=== PATIENT | male | born 1955 | race African-American/Black ===

== ENCOUNTER 2025-08-13 11:50 | Inpatient (IN) | payer OTHER ==
[2025-08-13 12:12] VITALS: BMI 21.7
[2025-08-13 12:39] LABS: RDW 17.7 % (12.2-16.4)
[2025-08-13 12:41] LABS: IMMATURE PLATELET FRACTION # 2.00 x10^3/uL; MCHC 33.0 g/dl (32.3-36.5); MEAN CELL VOLUME 84.6 fl (79.0-92.2)
[2025-08-13 12:50] LABS: INR 1.31 (0.83-1.09); PROTHROMBIN TIME (PATIENT) 14.3 SEC (9.7-13.0)
[2025-08-13 12:53] LABS: ACTIVATED PTT 27.6 SECONDS (25.2-36.5)
[2025-08-13] MEDS ORDERED: ACETAMINOPHEN INJECTION 100 ML ONE (13:14)
[2025-08-13 13:30] LABS: GLUCOSE,RANDOM 142 mg/dL (74-106)
[2025-08-13] MEDS: SODIUM CHLORIDE 0.9% 500 ML INFUS.BAG IV ONE (13:30)
[2025-08-13] MEDS: ACETAMINOPHEN 1000 MG/100 ML BAG IVPB ONE (13:30)
[2025-08-13 13:31] LABS: TOT PROT 6.6 g/dl (6.4-8.2)
[2025-08-13 13:32] LABS: CO2 19 mmol/L (21-32)
[2025-08-13 13:33] LABS: ALK PHOS 56 U/L (40-150)
[2025-08-13 13:36] LABS: CREATININE 1.01 mg/dL (0.55-1.3); SGOT/AST 31 U/L (5-34); SGPT/ALT < 6 U/L (0-55)
[2025-08-13] MEDS ORDERED: dilTIAZem HCL 125 MG/25 ML - 25 ML VIAL ONE (13:52)
[2025-08-13] MEDS: dilTIAZem HCL 50 MG/10 ML - 10 ML VIAL IVPUSH ONE (14:05)
[2025-08-13 17:10] LABS: URINE APPEARANCE CLEAR; URINE BILIRUBIN NEGATIVE (NEGATIVE); URINE COLOR YELLOW; URINE GLUCOSE (UA) NEGATIVE (NEGATIVE); URINE KETONE NEGATIVE (NEGATIVE); URINE LEUK ESTERASE NEGATIVE (NEGATIVE); URINE NITRITE NEGATIVE (NEGATIVE); URINE PROTEIN NEGATIVE (NEGATIVE); URINE UROBILINOGEN 0.2 mg/dL (0.2-1.0)
[2025-08-13] MEDS ORDERED: METOPROLOL TARTRATE 5 MG/5 ML VIAL IVPUSH PRN (19:22)
[2025-08-13] MEDS: GABAPENTIN 300 MG CAPSULE PO SCH (22:00)
[2025-08-13] MEDS: FLUCONAZOLE 100 MG TABLET (UD) PO SCH (22:00)
[2025-08-13] MEDS: valACYclovir HCL 500 MG TABLET (FP) PO SCH (22:05)
[2025-08-14 00:40] VITALS: RESP 18
[2025-08-14] MEDS: FLUTICASONE/SALMETEROL (WIXELA) 100 MCG/50 MCG DISKUS IH SCH (00:42)
[2025-08-14] MEDS: LOSARTAN 50MG/HCTZ 12.5MG 1 TAB PO SCH (09:39)
[2025-08-14] MEDS: TAMSULOSIN HCL 0.4 MG CAP PO SCH (09:39)
[2025-08-14] MEDS: GABAPENTIN 100 MG CAPSULE PO SCH (09:40)
[2025-08-14 11:55] LABS: IMMATURE PLATELET FRACTION # 1.70 x10^3/uL; MCHC 33.9 g/dl (32.3-36.5); MEAN CELL VOLUME 84.4 fl (79.0-92.2); RDW 15.7 % (12.2-16.4)
[2025-08-14 13:03] LABS: GLUCOSE,RANDOM 99 mg/dL (74-106)
[2025-08-14 13:04] LABS: TOT PROT 5.4 g/dl (6.4-8.2)
[2025-08-14 13:05] LABS: CO2 23 mmol/L (21-32)
[2025-08-14 13:07] LABS: ALK PHOS 45 U/L (40-150)
[2025-08-14 13:09] LABS: SGOT/AST 13 U/L (5-34); SGPT/ALT < 6 U/L (0-55)
[2025-08-14 13:10] LABS: CREATININE 1.21 mg/dL (0.55-1.3)
[2025-08-14] MEDS: ACETAMINOPHEN 325 MG TABLET (FP) PO PRN (20:14)
[2025-08-14 23:29] LABS: IMMATURE PLATELET FRACTION # 2.00 x10^3/uL; MCHC 34.8 g/dl (32.3-36.5); MEAN CELL VOLUME 84.2 fl (79.0-92.2); MEAN PLT VOLUME 10.5 fl (9.4-12.4); RDW 15.0 % (12.2-16.4)
[2025-08-15] MEDS: PREGABALIN 50 MG CAPSULE PO ONE (03:50)
[2025-08-15 08:10] LABS: MEAN CELL VOLUME 86.4 fl (79.0-92.2); RDW 15.0 % (12.2-16.4)
[2025-08-15 08:12] LABS: IMMATURE PLATELET FRACTION # 1.60 x10^3/uL; MCHC 34.5 g/dl (32.3-36.5); MEAN PLT VOLUME 10.9 fl (9.4-12.4)
[2025-08-15 08:32] LABS: INR 1.26 (0.83-1.09); PROTHROMBIN TIME (PATIENT) 13.7 SEC (9.7-13.0)
[2025-08-15 08:34] LABS: ACTIVATED PTT 28.5 SECONDS (25.2-36.5)
[2025-08-15 08:38] LABS: GLUCOSE,RANDOM 108 mg/dL (74-106); TOT PROT 5.5 g/dl (6.4-8.2)
[2025-08-15 08:39] LABS: CO2 24 mmol/L (21-32)
[2025-08-15 08:40] LABS: ALK PHOS 47 U/L (40-150)
[2025-08-15 08:43] LABS: SGOT/AST 14 U/L (5-34); SGPT/ALT < 6 U/L (0-55)
[2025-08-15 08:44] LABS: CREATININE 1.17 mg/dL (0.55-1.3)
[2025-08-15] MEDS: LOSARTAN POTASSIUM 50 MG TABLET PO SCH (10:47)
[2025-08-15] MEDS: NAPH,MB-DB/K PH,MBDB POWDER PACKET PO ONE (13:21)
[2025-08-15] MEDS: MAGNESIUM OXIDE 400 MG TABLET (FP) PO ONE (13:21)
[2025-08-15 17:38] VITALS: BP 144/72; PULSE 71; TEMP 97.9
== END 2025-08-15 17:47 | disposition short-term general hospital (02) | DRG 835 ==
LOC: JER 11:50 → JERBED 15:38 → OBSVTOIN 19:15 → J4W 20:37
PROVIDERS: ADMIT Internal Medicine; ATTEND Internal Medicine
PROC: 30233R1 Transfusion of Nonautologous Platelets into Peripheral Vein, Percutaneous Approach (ICD-10-PCS; principal; 2025-08-14)
PROC: 30233N1 Transfusion of Nonautologous Red Blood Cells into Peripheral Vein, Percutaneous Approach (ICD-10-PCS; 2025-08-14)
DX: C92.00 Acute myeloblastic leukemia, not having achieved remission (principal); D61.818 Other pancytopenia; J44.9 Chronic obstructive pulmonary disease, unspecified; N40.0 Benign prostatic hyperplasia without lower urinary tract symptoms; I10 Essential (primary) hypertension; G89.29 Other chronic pain; I48.0 Paroxysmal atrial fibrillation
CPT/HCPCS: 36415; 36430; 71045-TC-FY; 76937; 80053; 81003; 82962; 83735; 84100; 84439; 84443; 84484; 85025; 85027; 85384; 85610; 85730; 86900; 86922; 87040; 87086; 87637-QW; 88300-TC; 93005; 93010; 93308; 99291; G0378; P9021; P9037; P9058